=== PATIENT | male | born 1945 | race Caucasian/White ===

== ENCOUNTER 2019-11-05 21:21 | Emergency (ER) | payer MEDICARE, MEDICAID ==
[~2019-11-05] VITALS: Ht 177.8 cm; Wt 70.3 kg
[2019-11-05 21:40] VITALS: BP 152/90
--- NOTE | 2019-11-05 21:43 | NUR ---
TO LOBBY A/W BED AMBULATORY
--- NOTE | 2019-11-06 00:02 | NUR ---
74 YEAR OLD MALE COMPLAINS OF COUGH AND SHORTNESS OF BREATHE X 3 HOURS. PATIENT STATES COUGH STARTED TODAY WITH SOME BLOOD MUCUS. PATIENT LUNGS WHEEZING BILATERAL, RR 20, SPO2 96%. PATIENT AOX4, BREATHING EVEN AND LABORED, SKIN WARM AND DRY. ERMD MADE AWARE OF STATUS. BED IN LOWEST POSITION,LOCKED, BED RAIL UPX1. PMH - ASTHMA ALLERGIES - NKA
[2019-11-06] MEDS ORDERED: ALBUTEROL SULFATE/IPRATROPIU 3 ML SOL IH ONE ×2 (00:10→00:35)
--- NOTE | 2019-11-06 00:31 | NUR ---
PATIENT STATES HE IS STILL HAVING SOME SOB AFTER BREATHING TREATMENT, AUBREYD MADE AWARE
--- NOTE | 2019-11-06 00:39 | NUR ---
RT AT BEDSIDE
[2019-11-06 01:24] VITALS: BP 132/86
--- NOTE | 2019-11-06 01:24 | NUR ---
Patient discharged with v/s stable. No longer c/o sob/dyspnea. States relief. Written and verbal after care instructions given and explained. Patient alert, oriented and verbalized understanding of instructions. Ambulatory with steady gait. All questions addressed prior to discharge. ID band removed. Patient advised to follow up with PMD. Rx of Albuterol and Prednisone given. Patient educated on indication of medication including possible reaction and side effects. Opportunity to ask questions provided and answered.
== END 2019-11-06 01:24 | disposition home or self-care (01) ==
LOC: MED 21:21
DX: J44.1 Chronic obstructive pulmonary disease with (acute) exacerbation (principal); I10 Essential (primary) hypertension
CPT/HCPCS: 71045; 94640; 99283; J7620